=== PATIENT | female | born 1945 | race Caucasian/White ===

== ENCOUNTER 2024-05-14 15:35 | Emergency (ER) | payer OTHER, SELFPAY ==
[2024-05-14] VITALS (10 sets, daily range): BP systolic 110–140; BP diastolic 55–76; PULSE 97–116
--- NOTE | 2024-05-14 16:03 | ED.GENMED ---
History of Present Illness
General
Chief Complaint: Cold/Flu/URI Symptoms
Source: patient, family and ambulance crew
Exam Limitations: none
Time Seen by Provider: 05/14/24 15:40
Nursing documentation reviewed up to this point in time: agreed with
History of Present Illness
History of Present Illness:
78-year-old female with a past medical history of hypertension, hyperlipidemia, diabetes who presents to the emergency room via EMS from home where she lives with her ; she is accompanied by her daughters but was brought in by EMS for
evaluation of weakness and fever, found down by daughters. Patient reports that she has been feeling very weak and that she will get positionally lightheaded�she says this has been ongoing 'for quite some time' but is not exactly sure how long. It
sounds like according to the daughters she has been increasingly weak over the past few days. 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 Today daughter says that she was talking to her
mother on the phone and mother trailed off/ended the conversation abruptly; unclear whether she passed out or not, patient is not really sure--says she was dizzy. Daughter states that they went to check on her and found her near the bed, having
soiled herself, confused and sweaty and they checked her temperature and she was febrile to 101 �F. EMS called to bring her to the hospital for evaluation. Per EMS Accu-Chek was 171, tachycardic otherwise stable vitals. Patient denies any chest
pain, palpitations, shortness of breath. She denies any headache or neck pain. She denies any back pain. She denies any pain in her extremities. She denies feeling nauseated; had episode of diarrhea prior to arrival. Daughters do report that
they tested her for COVID just before the ambulance arrived and it seemed to be positive.
Past History
Past History
ED Past Medical History: HTN, Hypercholesterolemia and NIDDM
ED Past Surgical History: Cholecystectomy and
Social History
Tobacco: Non-smoker
Alcohol: None
Personal:
Living: with family
Review of Systems
Review of Systems
All Other Systems: ROS reviewed and negative except as documented in HPI and ROS
Constitutional: Reports fever and fatigue; Denies chills
EENT: Denies sore throat or runny nose
Respiratory: Reports cough; Denies trouble breathing
Cardiac: Reports diaphoresis; Denies chest pain or palpitations
ABD/GI: Reports diarrhea; Denies abdominal pain, nausea or vomiting
: Denies flank pain
Musculoskeletal: Denies neck pain or back pain
Neurological: Reports dizzy; Denies headache
Phy Exam
Physical Exam
Physical Exam:
General: Awake, alert, oriented x3; appears generally weak/frail but nontoxic
Head: Normocephalic, atraumatic
Eyes: Conjunctiva normal, pupils equal round reactive to light bilaterally, extraocular movements intact
Throat: Airway intact, mucous membranes slightly dry
Neck: Trachea midline, supple without meningismus
Lungs: Clear to auscultation bilaterally, no wheezing, rales, rhonchi; mild tachypnea, pulse ox acceptable
Heart: Tachycardia with regular rhythm, no murmurs, gallops, or rubs
Abd: Soft, non distended, nontender
Neuro: Cranial nerves grossly intact, speech fluid, no gross motor or sensory deficits
Extremities: No edema in extremities, no deformity or tenderness, allows for passive range of motion without apparent pain, equal pulses in all extremities
Scores
Heart Failure Risk
Heart Failure Risk Score: Not Applicable
Heart Score for Chest Pain Patients
STEMI patient?: Not applicable
Withdrawal Assessment of Alcohol
Withdrawal Assessment Completed?: Not applicable
Course
Orders/Labs/Results
Orders:
Orders
05/14/24 15:42
EKG [Electrocardiogram (*1)] Urgent
Reason for Study: Fatigue / Weakness
05/14/24 15:43
EKG- Treatment ONCE
05/14/24 15:52
CPK [Creatine Phosphokinase] Urgent
Complete Blood Count/With Diff Urgent
Comprehensive Metabolic Panel Urgent
05/14/24 15:56
CT Cervical Spine W/o Iv Contr Urgent
Comment:
Reason For Exam: found down on floor
CT Head W/o Iv Contrast Urgent
Comment:
Reason For Exam: found down on floor, ?LOC, unsure headstrike
05/14/24 15:57
Orthostatic VS- Treatment ONCE
0.9% Sodium Chloride 500 ml [Nss] 500 ml IV BOLUS
CR Chest - 2 Views Urgent
Comment:
Reason For Exam: weakness, COVID+
05/14/24 17:17
COVID-19 Antigen Urgent
Source: Nasal Swab
05/14/24 18:23
Urinalysis Reflex To Culture Urgent
Date Specimen was Collected: 05/14/24
Time Specimen was Collected: 18:16
Urine Microscopic Reflex Cult Urgent
Abnormal Lab Results
05/14/24 05/14/24 05/14/24
15:52 17:17 18:23
Hgb 10.3 L g/dL
(12.0-16.0)
Hct 31.5 L %
(37.0-47.0)
MCV 64.7 L fL
(81.0-99.0)
MCH 21.1 L pg
(27.0-31.0)
MCHC 32.7 L g/dL
(33.0-37.0)
RDW 15.6 H %
(11.5-14.5)
MPV 11.3 H fL
(7.4-10.4)
Abs Immat Gran (auto) 0.1 H 10^3/uL
(0-0.05)
Absolute Lymphs (auto) 0.6 L 10^3/uL
(1.2-3.4)
Immature Gran % 1.0 H %
(0-0.5)
Neutrophils % 75.8 H %
(42.2-75.2)
Lymphocytes % 10.5 L %
(20.5-51.1)
Monocytes % 11.1 H %
(1.7-9.3)
Carbon Dioxide 21 L mmol/L
(22-30)
BUN 26 H mg/dl
(7-17)
Creatinine 1.2 H mg/dL
(0.6-1.0)
Glucose 147 H mg/dl
(70-99)
Calcium 10.4 H mg/dl
(8.4-10.2)
AST 47 H U/L
(14-36)
Urine Glucose 3+ A
(Negative)
Urine Albumin (Reflex) 2+ A
(Neg - Trace)
SARS-CoV-2 Antigen Positive A
(Negative)
05/14/24 15:52
05/14/24 15:52
Vital Signs
Initial and Last Documented VS:
Initial Vital Signs
Pulse Resp BP
102 21 114/63
05/14/24 15:43 05/14/24 15:43 05/14/24 15:43
Last Documented Vital Signs
Temp Pulse Resp BP Pulse Ox
37.8 C 95 16 121/76 95
05/14/24 15:44 05/14/24 19:15 05/14/24 19:15 05/14/24 19:00 05/14/24 15:44
MDM/Problems Addressed
Differential Diagnosis Includes:
Fever, weakness, cough�pneumonia, viral syndrome, UTI, etc
MDM/Problems Addressed:
78-year-old female presents from home via EMS after being found near her bed by daughters�has had increased weakness, lightheadedness, cough and this morning found to be febrile. Apparently home COVID test was positive prior to arrival. There was
a questionable syncopal episode�patient feeling dizzy while daughter was on the phone and may have passed out. No apparent traumatic injuries. Tachycardic and tachypneic with borderline fever here. Physical exam as above. Place an IV send labs
including a CBC and a CMP. Check CPK. Check an EKG. Will check chest x-ray, COVID swab. Check urinalysis. Sent for CT head and cervical spine. Provide some fluids and Tylenol. Reassess after the above.
Labs reviewed: CBC shows stable anemia, CMP shows creatinine of 1.2 essentially stable. Marginal elevation of AST likely related to viral syndrome. Urinalysis no infection. Chest x-ray no pneumonia. CT head and cervical spine negative. COVID
swab confirmed positive. Patient awake and alert, heart rate normalized feeling better after fluids. She has a normal pulse ox and normal respiratory rate. No clear indication for admission to the hospital at this point in time�patient is
requesting discharge and daughter feels comfortable with this plan. Offered Paxlovid, discussed risk and benefits patient declined. Advised to take Tylenol and Motrin, drink plenty of fluids, follow-up PCP. We spoke in detail about return
precautions and all questions were answered.
*Radiology
Radiology exam reviewed: preliminary read by ED provider and radiology read reviewed
*Pulse Oximetry
Patient hypoxic: no
*EKG
Interpreted by ED Provider?: Yes
Comparison EKG: no changes
Heart Rate: 103
Rate: tachycardiac
Rhythm: sinus and sinus tachycardia
[place]: normal axis
Interval: normal interval
QRS Pattern: normal QRS
Ischemia: no ischemia
*Critical Care Note
Total Time (30-74mins, 75-104mins- exclusive of procedures): Not Applicable
Data Reviewed
Review of Other/Old Records Reveals: Labs and Records
Source: patient, records and ambulance crew
Prescriptions/Medications Considered But Not Given:
Considered Paxlovid
ED Attending Note
-
Portions of this chart may have been created with voice recognition software.� Occasional wrong word or��sound alike� substitutions may have occurred due to the inherent limitations of voice recognition software.
Discharge Plan
Departure
Patient Disposition: Home (Routine Discharge)
Date of Disposition: 05/14/24
Time of Disposition: 20:17
Patient with high blood pressure during this ER visit?: No
Discharge Problem:
COVID-19
Instructions: COVID-19 ED
Prescriptions:
No Action
Jardiance 25 MG tablet
25 mg PO DAILY
Rybelsus 2 mg tablet
1 tab PO Daily
Rx Instructions:
First thing in the morning
glimepiride 2 MG tablet
1 tab PO DAILY
metformin 500 MG tablet
1 tab PO BID
Rx Instructions:
LUNCH AND DINNER
valsartan-hydrochlorothiazide 160-12.5 mg Tablet
1 tab PO DAILY
escitalopram oxalate 10 mg Tablet
10 mg PO DAILY
amlodipine-atorvastatin 5-10 mg Tablet
1 tab PO DAILY
fenofibrate 160 mg Tablet
160 mg PO DAILY
cholecalciferol (vitamin D3) [Vitamin D3] 50 mcg (2,000 unit) Tablet
50 mcg PO DAILY
Referrals:
Giovana Chavez MD [Family Provider] - Follow up in 5-7 days
Activity Restrictions/Additional Instructions:
Thank you for visiting the Emergency Department at [facility].
1. Please schedule a follow up appointment as directed. Call first thing tomorrow morning to make an appointment.
2. If indicated, please take your medications as instructed and indicated on discharge paperwork.
3. If any of your symptoms do not improve, or persist, or become more severe within 6-12 hours, please return to the emergency department for further care.
4. Please return to the emergency department if you develop a headache, neck pain/stiffness, fever greater than 100.4F, chest pain, shortness of breath, persistent nausea, vomiting, slurred speech, difficulty walking, numbness/tingling, weakness,
signs of infection or any other symptoms that are worrisome to you.
Please call [phone] if you have any questions.
Interventions
Interventions:
*Risk Screen - Suicide Last Done: 05/14/24 15:44
*General Assessment Last Done: 05/14/24 15:44
*Neglect/Abuse Screening Last Done: 05/14/24 15:44
ED- Fall Risk Assessment Last Done: 05/14/24 15:48
*ED COVID-19 Vaccine History Last Done: 05/14/24 15:44
ED- Pulmonary Assessment Last Done: 05/14/24 15:48
Discharge Date and Time
Print Language: ICELANDIC
[2024-05-14 16:28] LABS: % Basophils 0.9 % (0-2); % Eosinophils 0.7 % (0-6); % Lymphocytes 10.5 % (20.5-51.1); % Monocytes 11.1 % (1.7-9.3); % Neutrophils 75.8 % (42.2-75.2); Absolute Basophils 0.1 10^3/uL (0-0.2); Absolute Immature Granulocytes 0.1 10^3/uL (0-0.05); Absolute Lymphocytes 0.6 10^3/uL (1.2-3.4); Absolute Monocytes 0.6 10^3/uL (0.1-0.6); Absolute Neutrophils 4.4 10^3/uL (1.4-6.5); Hematocrit 31.5 % (37.0-47.0); Hemoglobin 10.3 g/dL (12.0-16.0); Mean Corp Hgb Conc. 32.7 g/dL (33.0-37.0); Mean Corpuscular Hgb 21.1 pg (27.0-31.0); Mean Corpuscular Volume 64.7 fL (81.0-99.0); Mean Platelet Volume 11.3 fL (7.4-10.4); Nucleated Red Blood Cells % 0 %; Platelet Count 160 10^3/uL (130-400); Red Blood Cell Count 4.87 10^6/uL (4.20-5.40); Red Cell Dist. Width 15.6 % (11.5-14.5); White Blood Cell Count 5.7 10^3/uL (4.8-10.8)
[2024-05-14 16:29] LABS: ALT (SGPT) 20 U/L (0-35); AST (SGOT) 47 U/L (14-36); Albumin 4.1 g/dl (3.5-5.0); Alkaline Phosphatase 56 U/L (38-126); Blood Urea Nitrogen 26 mg/dl (7-17); Calcium 10.4 mg/dl (8.4-10.2); Carbon Dioxide 21 mmol/L (22-30); Chloride 101 mmol/L (98-107); Glucose 147 mg/dl (70-99); Potassium 3.8 mmol/L (3.5-5.1); Sodium 139 mmol/L (135-145); Total Protein 6.6 g/dl (6.3-8.2); eGFR 45.76
[2024-05-14 16:30] LABS: Creatine Phosphokinase 66 U/L (30-135)
[2024-05-14] MEDS: NSS 500 IV (17:20)
[2024-05-14 18:02] LABS: COVID-19 Antigen Positive (Negative)
[2024-05-14 19:05] LABS: Urine Albumin 2+ (Neg - Trace); Urine Bilirubin Negative (Negative); Urine Character Clear (Clear); Urine Color Yellow; Urine Glucose 3+ (Negative); Urine Ketone Negative (Negative); Urine Leukocyte Negative (Negative); Urine Nitrite Negative (Negative); Urine Occult Blood Negative (Negative); Urine Specific Gravity 1.015 (<1.030); Urine Urobilinogen Negative (Neg - 1+)
[2024-05-14 19:24] LABS: Urine Red Blood Cell 0-2 /HPF (0-2)
== END 2024-05-14 20:55 | disposition home or self-care (01) ==
LOC: EMR 15:35
PROVIDERS: EMERGENCY PHYSICIAN Emergency Medicine; FAMILY PHYSICIAN Internal Medicine
DX: U07.1 COVID-19 (principal); I10 Essential (primary) hypertension; E78.00 Pure hypercholesterolemia, unspecified; E11.9 Type 2 diabetes mellitus without complications; Z90.49 Acquired absence of other specified parts of digestive tract
CPT/HCPCS: 99284; 96374; 70450; 71046; 72125; 80053; 81003; 81015; 82550; 85025; 87811; 93005

== ENCOUNTER → 2024-08-04 08:19 | Outpatient (REF) | payer OTHER, SELFPAY | LOC: PAVMRI 08:19 | PROVIDERS: ATTENDING PHYSICIAN Internal Medicine | DX: R41.3 Other amnesia (principal) | CPT/HCPCS: 70551 ==